=== PATIENT | male | born 1970 | race Caucasian/White ===

== ENCOUNTER 2017-03-23 13:03 | Emergency (ER) | payer SELFPAY ==
[~2017-03-23] VITALS: Ht 177.8 cm; Wt 133.0 kg
[2017-03-23 13:49] LABS: HEMATOCRIT 45.9 % (38.0-50.0); MCH 29.3 PG (29.0-34.0); MCHC 33.8 G/DL (30.0-36.0); MCV 86.8 FL (86-99); MEAN PLAT.VOLUME 10.1 uM^3 (9.0-12.4); PLATELET COUNT 230 K/uL (156-360); RBC DIS.WIDTH-CV 12.9 % (11.8-14.6); RBC DIS.WIDTH-SD 40.1 % (39-53); RED BLOOD COUNT 5.29 M/uL (4.00-5.50); WHITE BLOOD COUNT 9.6 K/uL (4.1-10.2)
[2017-03-23 13:56] LABS: CHLORIDE 105 mEq/L (99-109); POTASSIUM 4.7 mEq/L (3.7-5.4); SODIUM 137 mEq/L (136-147)
[2017-03-23 13:58] LABS: GLUCOSE 146 mg/dL (70-99)
[2017-03-23 14:00] LABS: ANION GAP 8 MEQ/L (2-14)
[2017-03-23 14:02] LABS: GFR ESTIMATE (CALCULATED) > 59 mL/min/
[2017-03-23 14:03] LABS: UREA NITROGEN (BUN) 13 mg/dL (9-23)
[2017-03-23 15:37] LABS: ADD MIUA? NO; BILIRUBIN NEGATIVE; BLOOD NEGATIVE; COLOR YELLOW ((YELLOW)); GLUCOSE (STRIP) NEGATIVE; KETONES NEGATIVE; LEUKOCYTES NEGATIVE; NITRITE NEGATIVE; PROTEIN (STRIP) NEGATIVE; SPECIFIC GRAVITY 1.016 (1.000-1.030); UCUL ADDED? NO; UROBILINOGEN 0.2 MG/DL (0.2-1.0)
[2017-03-23] MEDS ORDERED: ZOFRAN ODT4 MG PO (17:54)
[2017-03-23] MEDS ORDERED: NORCO 5/3251 TABLET PO (17:54)
[2017-03-23] MEDS ORDERED: FLOMAX0.4 MG PO (17:54)
[2017-03-23] MEDS ORDERED: MOTRIN800 MG PO (17:54)
[2017-03-23 18:16] VITALS: BP 135/87
== END 2017-03-23 18:19 | disposition home or self-care (01) ==
LOC: RME 13:03 → EME 13:03 → RME 18:19
DX: N13.2 Hydronephrosis with renal and ureteral calculous obstruction (principal); N13.4 Hydroureter
CPT/HCPCS: 74176; 80048; 81003; 85027; 99281; 99284